=== PATIENT | male | born 1955 | race Caucasian/White ===

== ENCOUNTER 2016-10-17 10:48 | Outpatient (CLI) | payer OTHER ==
[~2016-10-17] VITALS: Ht 177.8 cm; Wt 127.3 kg
--- NOTE | ~2016-10-17 | HEMODYNAMI ---
PATIENT:SHOBHA DICKSON MEDICAL RECORD: [id number] : 51 LOCATION:[facility] ADMISSION DATE: 10/17/16 Generatedon:10/17/201613:27 Patient name: SHOBHA DICKSON Patient #: [id number] SSN: : Date of study: 10/17/2016 Page: Of Hemodynamic Procedure Report Patient Data Patient Demographics Procedure consent was obtained First Name: SHOBHA Gender: Male Last Name: YESSI : 1955 Patient #: [id number] Age: 61 year(s) Race: Unknown Additional ID: [id number] Contact details [address]: [address] [place] [address] State: [place] City: [place] Zip code: [address] Admission Admission Data Admission Date: 10/17/2016 Admission Time: 10:48 Procedure Procedure Types Cath Procedure Diagnostic Procedure LHC LHC w/Coronaries Miscellaneous Procedures Moderate Sedation up to 15 minutes Procedure Description Procedure Date Procedure Date: 10/17/2016 Procedure Start Time: 13:10 Procedure End Time: 13:25 Procedure Staff Name Function Inderjit Sapp MD Performing Physician James Moraes RT Scrub Celia Falk RN Nurse Davi Salcedo RT Monitor Procedure Data Cath Procedure Fluoroscopy Diagnostic fluoroscopy Total fluoroscopy Time: 3.2 time: 3.2 min min Diagnostic fluoroscopy Total fluoroscopy dose: 831 dose: 831 mGy mGy Contrast Material Contrast Material Type Amount (ml) Isovue 300 72 Entry Location Entry Primary Successful Side Size Upsize Upsize Entry Closure Poole ccessful Closure Location (Fr) 1 (Fr) 2 (Fr) Remarks Device Remarks Radial Right 6 Fr Mechanical artery Short Compression Estimated blood loss: 10 ml Diagnostic catheters Device Type Used For End Catheter Placement Terumo 5Fr Kyle 110cm Procedure catheter Terumo 5Fr Dunbar 110cm Procedure catheter Procedure Complications No complications Procedure Medications Medication Administration Route Dosage Oxygen NC 2 l/min Heparin Flush Bag added to field 2 bags (1000units/500ml NS) Lidocaine 2% added to field 20 Radial Cocktail added to field 1 syringe (Verapomil 2mg/Nitro 400mcg/Heparin 1500units) Fentanyl I.V. 50 mcg Versed I.V. 1 mg Fentanyl I.V. 50 mcg Versed I.V. 1 mg Fentanyl I.V. 50 mcg Versed I.V. 1 mg Radial Cocktail I.A. 1 syringe (Verapomil 2mg/Nitro 400mcg/Heparin 1500units) Hemodynamics Rest Heart Rate: 66 (bpm) Pressure Samples Time Site Value (mmHg) Purpose Heart Use Rate(bpm) 13:12 LV 131/-8,9 Snapshot 73 13:12 AO 104/60(81) Pullback 72 13:12 LV 126/-2,16 Pullback 72 Gradients Valve Time Site 1 Site 2 Mean SEP/DFP Peak To Heart Use (mmHg) (sec/min) Peak Rate (mmHg) (bpm) Aortic 13:12 LV AO 16 7 22 72 126/-2,16 104/60(81) Calculations Valve P-P Mean Valve Index Valve Source Name Gradient Area Flow (cm2) Aortic 22 16 22 16 Snapshots Pre Cath Intra NCS Post Cath Vital Signs Time Heart Resp SPO2 etCO2 FN8pgpt NIBP Rhythm Pain Sedation Rate (ipm) (%) (mmHg) (mmHg) (mmHg) Status Level (bpm) 12:52:00 69 16 98 0 0 92/47(69) NSR 0 (11) 10(A) , No pain 12:56:12 64 16 98 0 0 96/36(81) NSR 0 (11) 10(A) , No pain 13:00:24 64 14 97 0 0 95/48(71) NSR 0 (11) 10(A) , No pain 13:04:36 70 18 98 0 0 99/47(84) NSR 0 (11) 10(A) , No pain 13:08:46 68 17 95 0 0 105/53(88) NSR 0 (11) 9(A) , No pain 13:12:56 70 18 95 0 0 87/53(68) NSR 0 (11) 9(A) , No pain 13:17:03 67 17 96 0 0 105/56(82) NSR 0 (11) 9(A) , No pain 13:21:15 68 18 96 0 0 95/49(82) NSR 0 (11) 10(A) , No pain 13:25:23 69 8 98 0 0 104/59(79) NSR 0 (11) 10(A) , No pain Medications Time Medication Route Dose Verified Delivered Reason Notes Effectiveness by by 12:50:55 Oxygen NC 2 l/min Inderjit Celia Per Sekou Falk RN physician 12:51:03 Heparin Flush added 2 bags Inderjit Inderjit used for Bag to Sekou Sapp MD procedure (1000units/500ml field NS) 12:51:10 Lidocaine 2% added 20ml Inderjit Inderjit used for to vial Sekou Sapp MD procedure field 12:51:17 Radial Cocktail added 1 Inderjit Inderjit used for (Verapomil to syringe Sekou Sapp MD procedure 2mg/Nitro field 400mcg/Heparin 1500units) 13:02:42 Fentanyl I.V. 50 mcg Inderjit Celia for sedation Sekou Falk RN 13:02:49 Versed I.V. 1 mg Inderjit Celia for sedation Sekou Falk RN 13:04:27 Fentanyl I.V. 50 mcg Inderjit Celia for sedation Sekou Falk RN 13:04:33 Versed I.V. 1 mg Inderjit Celia for sedation Sekou Falk RN 13:06:45 Fentanyl I.V. 50 mcg Inderjit Celia for sedation Sekou Falk RN 13:06:49 Versed I.V. 1 mg Inderjit Celia for sedation Sekou Falk RN 13:10:38 Radial Cocktail I.A. 1 Inderjit Inderjit for (Verapomil syringe Sekou Sapp MD vasodilation 2mg/Nitro 400mcg/Heparin 1500units) Procedure Log Time Note 12:30:05 James Moraes RT(R) sent for patient. Start room use. 12:31:01 ACC Patient presents with Stable Angina CCS Anginal Class 2--Slight limitation of ordinary activity. 12:31:03 Diagnostic Cath status Elective 12:31:21 Time tracking: Regular hours 12:31:26 Plan of Care:Hemodynamics will remain stable., Cardiac rhythm will remain stable., Comfort level will be maintained., Respiratory function will remain adequate., Patient/ family verbilizes understanding of procedure., Procedure tolerated without complication., Recovers from procedure without complications.. 12:45:22 Patient received from Pre/Post Procedure Room to CCL 1 Alert and oriented. Tansferred to table in Supine position. 12:45:24 Warm blankets applied, and eric hugger turned on for patient comfort. 12:45:24 Correct patient and procedure confirmed by team. 12:45:26 Signed procedure consent form obtained from patient. 12:45:27 ECG and BP/O2 sat monitors applied to patient. 12:50:45 Vital chart was started 12:50:55 Oxygen 2 l/min NC was administered by Celia Falk RN; Per physician; 12:51:03 Heparin Flush Bag (1000units/500ml NS) 2 bags added to field was administered by Inderjit Sapp MD; used for procedure; 12:51:10 Lidocaine 2% 20ml vial added to field was administered by Inderjit Spap MD; used for procedure; 12:51:17 Radial Cocktail (Verapomil 2mg/Nitro 400mcg/Heparin 1500units) 1 syringe added to field was administered by Inderjit Sapp MD; used for procedure; 13:00:03 Baseline sample Acquired. 13:00:07 Rhythm: sinus rhythm 13:00:15 Full Disclosure recording started 13:00:27 H&P Date Dictated: 10/03/2016 Within 30 days and on chart., H&P Addendum completed by physician on day of procedure. (MUST COMPLETE FOR ALL OUTPATIENTS). 13:00:28 Pre-procedure instructions explained to patient. 13:00:29 Pre-op teaching completed and patient verbalized understanding. 13:00:38 Family in waiting room. 13:00:40 Patient NPO since Midnight. 13:00:43 Is the patient allergic to Iodine/contrast media? No. 13:01:00 Is patient on blood thinner?No 13:01:02 Patient diabetic? Yes. 13:01:03 If diabetic: On Metformin? Yes 13:01:08 If on Metformin: Last Dose? 10/15/2016 13:01:11 Previous problem with sedation/anesthesia? No ? 13:01:12 Snore? Yes 13:01:17 Sleep apnea? Yes 13:01:19 Deviated septum? No 13:01:20 Opens mouth fully? Yes 13:01:21 Sticks out tongue? Yes 13:01:25 Airway obstruction? Yes Asthma 13:01:34 Dentures? No ? 13:01:36 Pre procedure: right dorsailis pedis pulse 1+ Palpable, but thready & weak; easily obliterated 13:01:38 Modified Gallito's test Ulnar < 7 seconds 13:01:39 Patient pain scale 0/10 ?. 13:01:47 IV patent on arrival in left forearm with 0.9% NaCl at O. 13:01:50 Lab results completed and on chart. 13:01:54 Right Radial & Right Groin area was prepped with chlora-prep and draped in sterile fashion 13:01:56 Alarms reviewed by R. N. 13:01:57 Sharps counted by scrub and verified by R.N. 13:02:06 --------ALL STOP TIME OUT------ 13:02:07 Final Timeout: patient, procedure, and site verified with staff and physician. All members of the team are in agreement. 13:02:11 Right Radial & Right Groin site verified by team. 13:02:14 Physical assessment completed. ASA score P 2 - A patient with mild systemic disease as per Inderjit Sapp MD. 13:02:18 Sedation plan: IV Moderate Sedation Versed, Fentanyl 13:02:42 Fentanyl 50 mcg I.V. was administered by Celia Falk RN; for sedation; 13:02:49 Versed 1 mg I.V. was administered by Celia Falk RN; for sedation; 13:04:27 Fentanyl 50 mcg I.V. was administered by Celia Falk RN; for sedation; 13:04:33 Versed 1 mg I.V. was administered by Celia Falk RN; for sedation; 13:06:45 Fentanyl 50 mcg I.V. was administered by Celia Falk RN; for sedation; 13:06:49 Versed 1 mg I.V. was administered by Celia Falk RN; for sedation; 13:09:27 Use device set Radial Dx 13:09:29 Tegaderm 4 x 4 opened to sterile field. 13:09:30 Acist Manifold opened to sterile field. 13:09:30 Acist Hand Control opened to sterile field. 13:09:32 Acist Syringe opened to sterile field. 13:09:32 Medline Cath Pack opened to sterile field. 13:09:33 Bag Decanter opened to sterile field. 13:09:33 Terumo 6Fr Slender Glidesheath opened to sterile field. 13:09:33 St Javi 260cm J .035 wire opened to sterile field. 13:09:34 Cook 21G 4cm Radial Needle opened to sterile field. 13:09:34 MBrace Wrist Support opened to sterile field. 13:10:23 Procedure started. 13:10:31 Local anesthetic to right radial artery with Lidocaine 2% by Inderjit Sapp MD.INITIAL ACCESS ONLY 13:10:38 Radial Cocktail (Verapomil 2mg/Nitro 400mcg/Heparin 1500units) 1 syringe I.A. was administered by Inderjit Sapp MD; for vasodilation; 13:10:50 A 6 Fr Short sheath was inserted into the Right Radial artery 13:11:28 A Terumo 5Fr Kyle 110cm catheter was advanced over the wire and used for Procedure. 13:12:20 LV angiography performed. 13:12:32 LV gram done using PAEZ 13:12:42 EF : 55 % 13:12:43 LV hemodynamics recorded. 13:12:51 Injector settings: Ml/sec: 5, Volume: 15, 13:14:39 RCA angiography performed. 13:14:58 Catheter exchanged over wire. 13:15:54 A Terumo 5Fr Dunbar 110cm catheter was advanced over the wire and used for Procedure. 13:16:57 LCA angiography performed. 13:20:23 Catheter removed. 13:20:30 Terumo TR Band Standard opened to sterile field. 13:20:47 Sheath removed intact; hemostasis achieved with Mechanical Compression to the Right Radial artery. 13:20:50 Procedure ended.(Physican Out) 13:21:04 Fluoroscopy time 03.20 minutes. 13:21:09 Fluoroscopy dose: 831 mGy 13:21:09 Flurop Dose total: 831 13:21:12 Contrast amount:Isovue 300 72ml. 13:21:16 Sharps counted by scrub and verified by R.N. 13:21:18 TR band inflated with 10cc of air. 13:21:21 Insertion/operative site no bleeding no hematoma. 13:21:28 Post Procedure Pulses reassessed and unchanged 13:21:31 Post-procedure physical assessment completed. ASA score P 2 - A patient with mild systemic disease as per Inderjit Sapp MD. 13:21:33 Post procedure rhythm: unchanged. 13:21:37 Estimated blood loss: 10 ml 13:21:38 Post procedure instruction explained to patient.Patient verbalizes understanding. 13:21:38 Patient needs reinforcement of post procedure teaching. 13:21:49 Procedure type changed to Cath procedure, Diagnostic procedure, LHC, LHC w/Coronaries, Miscellaneous Procedures, Moderate Sedation up to 15 minutes 13:21:54 Procedure Complication : No complications 13:23:47 Procedure and supply charges have been captured, reviewed, submitted and are correct. 13:25:20 Vital chart was stopped 13:25:21 See physician's report for complete and final results. 13:25:27 Report given to Pre/Post Procedure Room. 13:25:31 Patient transfered to Pre/Post Procedure Room with Stretcher. 13:25:35 Procedure ended. 13:25:35 Full Disclosure recording stopped 13:25:38 End room use (Document Last) Device Usage Item Name Manufacture Quantity Catalog Hospital Part Current Minimal Lot# / Number Charge Number Stock Stock Serial# Code Tegaderm 4 3M 1 [id number] [id number] 435769 5 x 4 Acist Acist 1 11834 445366 089791 685478 5 Manifold [employer] Inc Acist Hand Acist 1 82120 349956 432204 356766 5 Control [employer] Inc Acist Acist 1 26864 280553 505064 612249 20 Syringe Medical [employer] Inc Medline Cardinal 1 [id number] 375361 11966 384163 5 Cath Pack Health Bag Microtek 1 2001S 781576 02433 565388 5 Dec[employer] Terumo 6Fr Terumo 1 [id number] 710485 043861 077066 [address] St Javi 1 455774 485097 209634 346971 30 260cm J .035 wire MBrace Advanced 1 [id number] 871859 56303 467457 5 Wrist Vascular Support Dynamics Terumo 5Fr Terumo 1 40-6533 771722 964856 739044 5 Kyle 110cm catheter Terumo 5Fr Terumo 1 405853 065612 507046 806482 5 Dunbar 110cm catheter Terumo TR Terumo 1 [id number] 634919 601566 095860 40 Band Standard Cook 21G [place] [address] [id number] 897669 304657 508023 5 4cm Radial Needle Signature Audit Grethel Stage Time Signature Unsigned Intra-Procedure 10/17/2016 Davi Salcedo 1:27:16 PM RT(R) Signatures Monitor : Davi Salcedo RT Signature : Date : Time : [place] [id number] [facility] [place] [address]
[2016-10-17] MEDS ORDERED: NEURONTIN600 MG PO (11:18)
[2016-10-17] MEDS ORDERED: GLUCOPHAGE500 MG PO (11:19)
[2016-10-17] MEDS ORDERED: COZAAR100 MG PO (11:20)
[2016-10-17] MEDS ORDERED: SINGULAIR10 MG PO (11:20)
[2016-10-17] MEDS ORDERED: ADVAIR 500/501 DISK INH (11:21)
[2016-10-17] MEDS ORDERED: AMBIEN10 MG PO (11:21)
[2016-10-17] MEDS ORDERED: ALBUTEROL1.25 MG/3 INH (11:22)
[2016-10-17] MEDS ORDERED: CYCLOBENZAPRINE10 MG PO (11:22)
[2016-10-17] MEDS ORDERED: GLUCOTROL XL 1010 MG PO (11:23)
[2016-10-17] MEDS ORDERED: NEXIUM40 MG PO (11:24)
[2016-10-17] MEDS ORDERED: HYDROCODONE-APA1 TAB PO (11:24)
[2016-10-17] MEDS ORDERED: NAPROSYN500 MG PO (11:24)
[2016-10-17] MEDS ORDERED: VITAMIN B-1000 MCG/M SQ (11:25)
[2016-10-17] MEDS ORDERED: NORVASC5 MG PO (11:25)
[2016-10-17] MEDS ORDERED: GLUCOPHAGE1000 MG (11:26)
[2016-10-17 11:34] VITALS: BP 145/79; Ht 177.8 cm; Wt 127.3 kg
[2016-10-17 11:52] LABS: BASOPHILS 0.5 % (0-2); EOSINOPHILS 4.9 % (0-7); HEMOGLOBIN 12.1 g/dL (13.5-17.5); IMMATURE GRANULOCYTES 0.6 % (0-5); LYMPHOCYTES 17.9 % (15-50); MCH 29.9 pg (26.0-34.0); MCHC 31.8 g/dL (31.0-37.0); MCV 93.8 fL (80.0-100.0); MEAN PLATELET VOLUME 9.2 fL (7.4-10.4); MONOCYTES 9.2 % (2-11); NEUTROPHILS 66.9 % (40-80); PLATELET COUNT 239 10x3/uL (130-400); RBC 4.05 10x6/uL (4.20-6.10); RDW 16.6 % (11.5-14.5); WBC 6.5 10x3/uL (4.8-10.8)
[2016-10-17 12:08] LABS: ANION GAP 12.7 mmol/L (8-16); CALCIUM 9.4 mg/dL (8.5-10.1); CARBON DIOXIDE 27.7 mmol/L (21.0-32.0); CREATININE - SERUM 1.3 mg/dL (0.6-1.3); POTASSIUM - SERUM 4.4 mmol/L (3.5-5.1)
--- NOTE | 2016-10-17 13:58 | NUR ---
TR BAND TO R/WRIST CDI NO BLEEDING NO HEMATOMA NOTED INSTRUCTED PATIENT TO KEEP RUE STRAIGHT NO BENDING OR FLEXING OF WRIST. VSS
--- NOTE | 2016-10-19 10:59 | OP ---
PATIENT NAME: SHOBHA DICKSON MEDICAL RECORD: [id number] :51 LOCATION:D.[facility] ADMISSION DATE: SURGEON: ANA ROSA WALSH M.D. DATE OF OPERATION: 10/17/2016 REFERRING PHYSICIAN: London Valentin at [place], [place]. PROCEDURES PERFORMED: 1. Selective coronary angiography. 2. Left heart catheterization with ventriculogram. INDICATION: A 61-year-old gentleman presents with symptoms of dyspnea, angina, and abnormal stress test. EQUIPMENT USED: A 5-Barbadian Kyle catheter, Cocolalla catheter. TECHNIQUE: A 6-Barbadian sheath was inserted in retrograde fashion in the right radial artery. Next, selective coronary angiography was performed in standard views using 5-Barbadian Kyle catheter. The left main is cannulated with the Cocolalla catheter. Left heart catheterization was performed using the Kyle catheter. CORONARY ANATOMY: 1. Left main: Left main trunk is large in caliber. It gives rise to the LAD and circumflex. It is angiographically normal. 2. LAD: This is a large-caliber vessel extending to the apex. The proximal vessel appears to be about 5 mm in diameter. This is a smooth-walled vessel and angiographically normal. 3. Circumflex: This vessel is large in caliber. It supplies the lateral branch proximal segment. The circumflex and lateral branch are angiographically normal. 4. Right coronary: This vessel is quite large and dominant. It supplies the PDA and posterolateral branch in distal segment. This vessel is angiographically normal. 5. Left ventricle: Left ventricle is normal in size and function. No wall motion abnormalities are noted. Estimated ejection fraction is 60%. IMPRESSION: 1. Normal coronary arteries. 2. Normal left ventricular function. RECOMMENDATIONS: I suspect the Cardiolite stress was a false positive. We will continue with medical management. TRANSINT:[id number] Voice Confirmation ID: [id number] DOCUMENT ID: [id number] ANA ROSA WALSH M.D. at 1059 CC: [id number] DICTATION DATE: 10/17/16 1327 ACADEMIC DEPARTMENT CHAIR: 10/17/16 1352 DEP CLI 10/17/16 [place] [address]
== END 2016-10-17 16:00 | disposition home or self-care (01) ==
LOC: D.CATH 10:48
PROVIDERS: Internal Medicine Cardiovascular Disease
DX: R94.39 Abnormal result of other cardiovascular function study (principal); R06.00 Dyspnea, unspecified

== ENCOUNTER 2016-10-26 06:55 | Day surgery (SDC) | payer OTHER ==
[~2016-10-26] VITALS: Ht 177.8 cm; Wt 124.7 kg
[~2016-10-26 06:55] MED LIST: ADVAIR 500/501 DISK INH; ALBUTEROL1.25 MG/3 INH; AMBIEN10 MG PO; COZAAR100 MG PO; CYCLOBENZAPRINE10 MG PO; GLUCOPHAGE1000 MG; GLUCOPHAGE500 MG PO; GLUCOTROL XL 1010 MG PO; HYDROCODONE-APA1 TAB PO; NAPROSYN500 MG PO; NEURONTIN600 MG PO; NEXIUM40 MG PO; NORVASC5 MG PO; PERCOCET 10/3251 TA1 PO; SINGULAIR10 MG PO; VITAMIN B-1000 MCG/M SQ
[2016-10-26 07:38] VITALS: BP 128/69; Ht 177.8 cm; Wt 124.7 kg
[2016-10-26 08:34] LABS: HEMATOCRIT 36.9 % (42.0-54.0); HEMOGLOBIN 11.6 g/dL (13.5-17.5); MCH 29.5 pg (26.0-34.0); MCHC 31.4 g/dL (31.0-37.0); MCV 93.9 fL (80.0-100.0); MEAN PLATELET VOLUME 9.4 fL (7.4-10.4); RBC 3.93 10x6/uL (4.20-6.10); RDW 16.5 % (11.5-14.5); WBC 5.8 10x3/uL (4.8-10.8)
[2016-10-26 09:01] LABS: ANION GAP 11.4 mmol/L (8-16); CALCIUM 9.8 mg/dL (8.5-10.1); CREATININE - SERUM 1.3 mg/dL (0.6-1.3); POTASSIUM - SERUM 4.4 mmol/L (3.5-5.1)
[2016-10-26] MEDS ORDERED: DILAUDID4 MG PO (10:44)
--- NOTE | 2016-10-30 18:11 | OP ---
PATIENT NAME: SHOBHA DICKSON MEDICAL RECORD: [id number] :51 LOCATION:[facility] ADMISSION DATE: SURGEON: SHOBHA BOBBY MD DATE OF OPERATION: 10/26/2016 PREOPERATIVE DIAGNOSIS: Recurrent acromioclavicular arthritis with recurrent impingement of the left shoulder. POSTOPERATIVE DIAGNOSES: Recurrent acromioclavicular arthritis with recurrent impingement of the left shoulder. Severe biceps tendinitis with near full thickness tearing. PROCEDURES: 1. Arthroscopic biceps tenotomy. 2. Arthroscopic distal clavicle excision done through separate incision-1 cm. 3. Arthroscopic subacromial decompression. SURGEON: Shobha Bobby MD. ANESTHESIA: General. INTRAOPERATIVE COMPLICATIONS: None. SUMMARY OF PATHOLOGIC FINDINGS: Consistent with the preoperative imaging studies. The patient had recurrence of his distal clavicle osteophytes. Furthermore, the patient had recurrence of his inferior spurring and the biceps tendon was in very poor condition. OPERATIVE SUMMARY IN DETAIL: After obtaining the appropriate preoperative orthopedic surgery consent as well as anesthetic consultation, evaluation and clearance, the patient was brought to the operating room and placed on the operating table in supine position. After general laryngeal mask was administered, the patient was placed in a right lateral decubitus position. All pressure points were well padded to include down leg peroneal pad as well as axillary roll. The patient was held firmly to the operating table using the vacuum pack suction system. Left upper extremity and shoulder were then prepped and draped in routine sterile fashion. The arm was held in the Arthrex traction boom at 30 degrees of forward flexion, 30 degrees of abduction with 10 pounds of traction laterally. Arthroscopy was established in the glenohumeral joint from a posterior portal. Anterior portal was established in the anterior safe interval. Diagnostic arthroscopy revealed the above findings. The [place] tissue ablation system was utilized to release the biceps tendon. Having completed this, attention turned to the subacromial space. While on subacromial space, recurrent impingement was noted. The [place]wood tissue ablation system was utilized to denude the undersurface of the acromion of all soft tissue elements. A 5-0 barrel bur was used to perform acromioplasty at the level of the acromioclavicular joint, then through a separate anterior arthroscopic portal under arthroscopic visualization, distal clavicle was excised and on the posterior inferior to superior freed entirely on one incision. Although rotator cuff was inflamed, bursa was taken down. There was no rotator cuff tearing was seen. Having completed this, arthroscopy portals were closed in routine interrupted fashion using 4-0 Prolene. Sterile dressings were applied. The patient was awakened, taken to recovery in stable condition. All final needle and sponge counts were correct. OPERATIVE REPORT [id number] SHOBHA DICKSON TRANSINT:[id number] Voice Confirmation ID: [id number] DOCUMENT ID: [id number] DIAMANTE YBRNE, SHOBHA BOURGEOIS at 1811 CC: [id number] DICTATION DATE: 10/27/16 1437 ROLLWAY WORKER: 10/28/16 0059 [facility] 10/26/16 [place] [id number] [place] [address]
== END 2016-10-26 13:00 | disposition home or self-care (01) ==
LOC: D.OPS 06:55 → D.PAN 09:15 → D.OPS 10:45 → D.PAN 10:45 → D.OPS 13:00
PROVIDERS: Anesthesiology
DX: M13.819 Other specified arthritis, unspecified shoulder (principal); M75.42 Impingement syndrome of left shoulder; M25.512 Pain in left shoulder; J45.909 Unspecified asthma, uncomplicated; I10 Essential (primary) hypertension; E11.9 Type 2 diabetes mellitus without complications; G47.30 Sleep apnea, unspecified; K21.9 Gastro-esophageal reflux disease without esophagitis; Z01.812 Encounter for preprocedural laboratory examination

== ENCOUNTER 2017-10-01 11:07 | Outpatient (CLI) | payer OTHER ==
[~2017-10-01] VITALS: Ht 177.8 cm; Wt 116.4 kg
--- NOTE | ~2017-10-01 | HEMODYNAMI ---
PATIENT:SHOBHA DICKSON MEDICAL RECORD: [id number] : 51 LOCATION:[facility] ADMISSION DATE: 10/01/17 Generatedon:10/01/201713:27 Patient name: SHOBHA DICKSON Patient #: [id number] SSN: : Date of study: 10/01/2017 Page: Of Hemodynamic Procedure Report Patient Data Patient Demographics Procedure consent was obtained First Name: SHOBHA Gender: Male Last Name: YESSI : 1955 Middle Initial: M Age: 62 year(s) Patient #: [id number] Race: Unknown Additional ID: [id number] Contact details [address]: [address] [place] [address] State: [place] City: [place] Zip code: [address] Admission Admission Data Admission Date: 10/01/2017 Admission Time: 11:07 Lab Results Lab Result Date: 10/01/2017 Lab Result Time: 0:00 Biochemistry Name Units Result Min Max BUN mg/dl 17 --(---*)-- 7 18 Creatinine mg/dl 1.4 --(----)*- 0.6 1.3 CBC Name Units Result Min Max Hemoglobin g/dl 12.5 *-(----)-- 13.5 17.5 Procedure Procedure Types Cath Procedure Diagnostic Procedure Sedation Charges Moderate Sedation up to 15 minutes Peripheral Cath Diagnostic Procedure Cath Peripheral Xfdxu-Kbftbla-Esk-Off Procedure Description Procedure Date Procedure Date: 10/01/2017 Procedure Start Time: 13:15 Procedure End Time: 13:24 Procedure Staff Name Function Inderjit Sapp MD Performing Physician Ellie Richards RT Monitor Jo Ann Cook RT Scrub Janet Bridges RN Nurse Procedure Data Cath Procedure Fluoroscopy Diagnostic fluoroscopy Total fluoroscopy Time: 1.1 time: 1.1 min min Diagnostic fluoroscopy Total fluoroscopy dose: 271 dose: 271 mGy mGy Contrast Material Contrast Material Type Amount (ml) Isovue 300 77 Entry Location Entry Primary Successful Side Size Upsize Upsize Entry Closure Succes sful Closure Location (Fr) 1 (Fr) 2 (Fr) Remarks Device Remarks Femoral Right 5 Fr Exoseal artery Estimated blood loss: 5 ml Diagnostic catheters Device Type Used For End Catheter Placement DIAGNOSTIC UF 5Fr Multi-vessel catheter ([id number]) Angiography Procedure Complications No complications Procedure Medications Medication Administration Route Dosage Oxygen NC 2 l/min Lidocaine 2% added to field 20 Heparin Flush Bag added to field 2 bags (1000units/500ml NS) 0.9% NaCl I.V. 100 ml/hr Versed I.V. 1 mg Fentanyl I.V. 100 mcg Versed I.V. 1 mg Fentanyl I.V. 50 mcg Versed I.V. 1 mg Fentanyl I.V. 50 mcg Hemodynamics Rest HGB: 12.5 (g/dl) Heart Rate: 87 (bpm) Snapshots Pre Cath Intra NCS Post Cath Vital Signs Time Heart Resp SPO2 etCO2 NIBP Rhythm Pain Sedation Rate (ipm) (%) (mmHg) (mmHg) Status Level (bpm) 13:00:47 85 15 96 33.9 120/76(87) NSR 0 (11) 10(A) , No pain 13:04:59 86 19 95 21.1 115/72(91) NSR 0 (11) 10(A) , No pain 13:09:11 83 17 96 42.2 110/69(88) NSR 0 (11) 10(A) , No pain 13:13:21 82 17 94 40 109/67(85) NSR 0 (11) 9(A) , No pain 13:17:31 83 18 95 41.4 118/69(93) NSR 0 (11) 9(A) , No pain 13:21:45 87 16 96 45.2 109/61(81) NSR 0 (11) 10(A) , No pain 13:25:57 86 17 97 43.7 110/65(83) NSR 0 (11) 10(A) , No pain Medications Time Medication Route Dose Verified Delivered Reason Notes Effe ctiveness by by 13:01:57 Oxygen NC 2 Inderjit Buffie used for l/min Sekou Bridges RN procedure 13:02:11 Lidocaine 2% added 20ml Inderjit Inderjit for local to vial Sekou Sapp MD anesthetic field 13:02:17 Heparin Flush added 2 Inderjit Inderjit used for Bag to bags Sekou Sapp MD procedure (1000units/500ml field NS) 13:02:26 0.9% NaCl I.V. 100 Inderjit Buffie Per ml/hr Sekou Bridges RN physician 13:02:41 Versed I.V. 1 mg Inderjit Buffie for Sekou Bridges RN sedation 13:02:47 Fentanyl I.V. 100 Inderjit Buffie for mcg Sekou Bridges RN sedation 13:06:43 Versed I.V. 1 mg Inderjit Buffie for Sekou Bridges RN sedation 13:06:46 Fentanyl I.V. 50 Inderjit Buffie for mcg Sekou Bridges RN sedation 13:13:07 Versed I.V. 1 mg Inderjit Buffie for Sekou Bridges RN sedation 13:13:10 Fentanyl I.V. 50 Inderjit Buffie for mcg Sekou Bridges RN sedation Procedure Log Time Note 12:40:00 Ellie Richards RT(R) sent for patient. Start room use. 12:40:01 Time tracking: Regular hours (M-F 7:00 - 5:00) 12:40:07 Plan of Care:Hemodynamics will remain stable., Cardiac rhythm will remain stable., Comfort level will be maintained., Respiratory function will remain adequate., Patient/ family verbilizes understanding of procedure., Procedure tolerated without complication., Recovers from procedure without complications.. 12:44:02 Lab Result : BUN 17 mg/dl 12:44:02 Lab Result : Hemoglobin 12.5 g/dl 12:44:02 Lab Result : Creatinine 1.4 mg/dl 12:47:14 Patient received from Pre/Post Procedure Room to CCL 2 Alert and oriented. Tansferred to table in Supine position. 12:47:15 Warm blankets applied, and eric hugger turned on for patient comfort. 12:47:15 Correct patient and procedure confirmed by team. 12:47:17 Signed procedure consent form obtained from patient. 12:47:18 ECG and BP/O2 sat monitors applied to patient. 12:59:42 Baseline sample Acquired. 12:59:42 Vital chart was started 12:59:46 Rhythm: sinus rhythm 12:59:48 Full Disclosure recording started 12:59:51 H&P Date Dictated: 10/01/2017 Within 30 days and on chart., H&P Addendum completed by physician on day of procedure. (MUST COMPLETE FOR ALL OUTPATIENTS). 12:59:52 Pre-procedure instructions explained to patient. 12:59:53 Pre-op teaching completed and patient verbalized understanding. 12:59:54 Family in waiting room. 12:59:56 Patient NPO since Midnight. 12:59:57 Is the patient allergic to Iodine/contrast media? No. 12:59:58 Was the patient premedicated? No 12:59:59 Is patient on blood thinner?Yes 13:00:04 If diabetic: On Metformin? Yes 13:00:09 If on Metformin: Last Dose? 09/29/2017 13:00:13 Previous problem with sedation/anesthesia? No ? 13:00:15 Snore? Yes 13:00:16 Sleep apnea? Yes 13:00:16 Deviated septum? No 13:00:18 Opens mouth fully? Yes 13:00:18 Sticks out tongue? Yes 13:01:08 Airway obstruction? Yes asthma 13:01:10 Dentures? No ? 13:01:14 Pre procedure: right dorsailis pedis pulse 1+ Palpable, but thready & weak; easily obliterated 13:01:16 Pre procedure: left dorsailis pedis pulse 1+ Palpable, but thready & weak; easily obliterated 13:01:18 Patient pain scale 0/10 ?. 13:01:36 IV patent on arrival in left forearm with 0.9% NaCl at [facility]. 13:01:38 Lab results completed and on chart. 13:01:42 Bilateral groins area was prepped with chlora-prep and draped in sterile fashion 13:01:42 Alarms reviewed by R. N. 13:01:43 Sharps counted by scrub and verified by R.N. 13:01:45 Physician arrived 13:01:46 --------ALL STOP TIME OUT------ 13:01:46 Final Timeout: patient, procedure, and site verified with staff and physician. All members of the team are in agreement. 13:01:48 Bilateral groins site verified by team. 13:01:50 Physical assessment completed. ASA score P 2 - A patient with mild systemic disease as per Inderjit Sapp MD. 13:01:53 Sedation plan: IV Moderate Sedation Medication:Versed, Fentanyl 13:01:57 Oxygen 2 l/min NC was administered by Janet Bridges RN; used for procedure; 13:02:11 Lidocaine 2% 20ml vial added to field was administered by Inderjit Sapp MD; for local anesthetic; 13:02:17 Heparin Flush Bag (1000units/500ml NS) 2 bags added to field was administered by Inderjit Sapp MD; used for procedure; 13:02:26 0.9% NaCl 100 ml/hr I.V. was administered by Janet Bridges RN; Per physician; 13:02:41 Versed 1 mg I.V. was administered by Janet Bridges RN; for sedation; 13:02:47 Fentanyl 100 mcg I.V. was administered by Janet Bridges RN; for sedation; 13:06:43 Versed 1 mg I.V. was administered by Janet Bridges RN; for sedation; 13:06:46 Fentanyl 50 mcg I.V. was administered by Janet Bridges RN; for sedation; 13:09:38 Zero performed for pressure channel P1 13:12:46 Baseline sample Acquired. 13:13:07 Versed 1 mg I.V. was administered by Janet Bridges RN; for sedation; 13:13:10 Fentanyl 50 mcg I.V. was administered by Janet Bridges RN; for sedation; 13:15:07 Use device set Radial Dx or PCI 13:15:08 ACIST Syringe (65546) opened to sterile field. 13:15:09 Medline Cath Pack ([id number]) opened to sterile field. 13:15:10 Bag Decanter () opened to sterile field. 13:15:11 DIAGNOSTIC WIRE .035 260cm J wire (135568) opened to sterile field. 13:15:12 ACIST Hand Control (24849) opened to sterile field. 13:15:12 ACIST Manifold (99577) opened to sterile field. 13:15:13 Tegaderm 4 x 4 (1626W) opened to sterile field. 13:15:21 SHEATH 5Fr Prelude ([id number]) opened to sterile field. 13:15:41 Procedure started. 13:15:45 Local anesthetic to right femoral artery with Lidocaine 2% by Inderjit Sapp MD.INITIAL ACCESS ONLY 13:17:12 A 5 Fr sheath was inserted into the Right Femoral artery 13:17:24 A DIAGNOSTIC UF 5Fr catheter ([id number]) was advanced over the wire and used for Multi-vessel Angiography. 13:20:05 Abdominal angiogram w/ runoff was performed. 13::54 EXOSEAL 5Fr (EX500) opened to sterile field. 13:22:01 Catheter removed. 13:22:17 Sheath removed intact; hemostasis achieved with Exoseal to the Right Femoral artery. 13:22:20 Procedure ended.(Physican Out) 13:22:45 Fluoroscopy time 01.10 minutes. 13::49 Fluoroscopy dose: 271 mGy 13::49 Flurop Dose total: 271 13::54 Contrast amount:Isovue 300 77ml. 13:22:55 Sharps counted by scrub and verified by R.N. 13::57 Insertion/operative site no bleeding no hematoma. 13:23:00 Post-op/insertion site Right Femoral artery dressed using a 4 x 4 and Tegaderm. 13:23:02 Post right femoral artery:stable 13:23:04 Post Procedure Pulses reassessed and unchanged 13:23:06 Post procedure rhythm: unchanged. 13:23:09 Estimated blood loss: 5 ml 13:23:11 Post procedure instruction explained to patient.Patient verbalizes understanding. 13:23:11 Patient needs reinforcement of post procedure teaching. 13:23:27 Procedure type changed to Cath procedure, Diagnostic procedure, Sedation Charges, Moderate Sedation up to 15 minutes, Peripheral Cath Diagnostic Procedure, Cath Peripheral, Gplwp-Ngcbygs-Uvl-Off 13:23:29 Procedure and supply charges have been captured, reviewed, submitted and are correct. 13:23:33 Procedure Complication : No complications 13:23:57 Vital chart was stopped 13:23:57 See physician's report for complete and final results. 13:24:00 Report given to Pre/Post Procedure Room. 13:24:02 Patient transfered to Pre/Post Procedure Room with Stretcher. 13:24:05 Procedure ended. 13:24:05 Full Disclosure recording stopped 13:24:09 End room use (Document Last) Device Usage Item Name Manufacture Quantity Catalog Hospital Part Current Minimal Lot# / Number Charge Number Stock Stock Serial# Code ACIST Acist 1 14954 767004 213992 160177 20 Telly (87391) [employer] Medline Cath Cardinal 1 [id number] 912987 10186 455897 5 Rec[employer] Inc. ([id number]) Bag Decanter Microtek 1 2001S 273457 35837 123965 5 (2001S) Medical Inc. DIAGNOSTIC St Javi 1 [id number] 829476 089611 369835 30 WIRE .035 260cm J wire (285320) ACIST Hand Acist 1 43247 013494 867939 087696 5 Control Medical (44323) Systems Inc ACIST Acist 1 11405 887896 357075 103606 5 Manifold Medical (98409) Systems Inc Tegaderm 4 x 3M 1 1626W 895853 734970 291078 5 4 (1626W) SHEATH 5Fr Merit 1 [id number] 765309 767239 115285 5 Prelude Medical ([id number]) DIAGNOSTIC Cardinal 1 [id number] 873220 099731 757512 10 UF 5Fr Health catheter ([id number]) EXOSEAL 5Fr Cardinal 1 EX500 250895 014835 378977 10 (EX500) Health Signature Audit [place] Stage Time Signature Unsigned Intra-Procedure 10/01/2017 Ellie Richards 1:26:58 PM RT(R) Signatures Monitor : Ellie Richards RT Signature : Date : Time : [facility] [address] [place] [address]
[~2017-10-01 11:07] MED LIST changes: +DILAUDID4 MG PO
[2017-10-01] MEDS ORDERED: BENZONATATE200 MG PO (11:39)
[2017-10-01] MEDS ORDERED: SINEQUAN25 MG PO (11:40)
[2017-10-01] MEDS ORDERED: PROTONIX40 MG PO (11:40)
[2017-10-01] MEDS ORDERED: ZYRTEC10 MG PO (11:41)
[2017-10-01 11:54] VITALS: BP 154/65; Ht 177.8 cm; Wt 116.4 kg
[2017-10-01 11:58] LABS: BASOPHILS 0.2 % (0-2); EOSINOPHILS 2.2 % (0-7); HEMATOCRIT 39.7 % (42.0-54.0); HEMOGLOBIN 12.5 g/dL (13.5-17.5); IMMATURE GRANULOCYTES 0.1 % (0-5); MCH 28.5 pg (26.0-34.0); MCHC 31.5 g/dL (31.0-37.0); MCV 90.4 fL (80.0-100.0); MONOCYTES 7.2 % (2-11); NEUTROPHILS 72.3 % (40-80); RBC 4.39 10x6/uL (4.20-6.10); RDW 15.6 % (11.5-14.5); WBC 8.9 10x3/uL (4.8-10.8)
[2017-10-01 11:59] LABS: PLATELET COUNT 308 10x3/uL (130-400)
[2017-10-01 12:16] LABS: ANION GAP 15.2 mmol/L (8-16); CALCIUM 9.5 mg/dL (8.5-10.1); CARBON DIOXIDE 25.9 mmol/L (21.0-32.0); CREATININE - SERUM 1.4 mg/dL (0.6-1.3); POTASSIUM - SERUM 4.1 mmol/L (3.5-5.1)
== END 2017-10-01 16:25 | disposition home or self-care (01) ==
LOC: D.CATH 11:07
PROVIDERS: Internal Medicine Cardiovascular Disease
DX: I73.9 Peripheral vascular disease, unspecified (principal); R79.81 Abnormal blood-gas level; M79.605 Pain in left leg; M79.604 Pain in right leg; E11.9 Type 2 diabetes mellitus without complications; I10 Essential (primary) hypertension; Z01.812 Encounter for preprocedural laboratory examination

== ENCOUNTER 2019-08-04 07:28 | Day surgery (SDC) | payer MEDICARE, OTHER ==
[~2019-08-04] VITALS: Ht 162.6 cm; Wt 106.6 kg
[~2019-08-04 07:28] MED LIST changes: +BENZONATATE200 MG PO; -NEURONTIN600 MG PO; +NEURONTIN800 MG PO; +PROTONIX40 MG PO; +SINEQUAN25 MG PO; +ZYRTEC10 MG PO
[2019-08-04 07:56] LABS: HEMATOCRIT 40.1 % (42.0-54.0); MCH 30.1 pg (26.0-34.0); MCHC 32.4 g/dL (31.0-37.0); MCV 92.8 fL (80.0-100.0); MEAN PLATELET VOLUME 8.7 fL (7.4-10.4); RBC 4.32 10x6/uL (4.20-6.10); RDW 15.7 % (11.5-14.5); WBC 9.1 10x3/uL (4.8-10.8)
[2019-08-04 08:07] LABS: CALCIUM 8.8 mg/dL (8.5-10.1); CARBON DIOXIDE 28.8 mmol/L (21.0-32.0); CREATININE - SERUM 1.1 mg/dL (0.6-1.3); POTASSIUM - SERUM 4.8 mmol/L (3.5-5.1)
[2019-08-04] MEDS ORDERED: ADVAIR (08:46)
[2019-08-04 08:52] VITALS: Ht 162.6 cm; Wt 106.6 kg
[2019-08-04] MEDS ORDERED: HYDROCODON-ACE1 EA10 PO (10:18)
--- NOTE | 2019-08-11 09:56 | OP ---
PATIENT NAME: SHOBHA DICKSON MEDICAL RECORD: [id number] :51 LOCATION:.[facility] ADMISSION DATE: SURGEON: SHOBHA BOBBY MD DATE OF OPERATION: 08/04/2019 PREOPERATIVE DIAGNOSES: Impingement syndrome of the left shoulder with rotator cuff tear. POSTOPERATIVE DIAGNOSES: Impingement syndrome of the left shoulder with rotator cuff tear. PROCEDURES: 1. Arthroscopic rotator cuff repair of the left shoulder. 2. Arthroscopic distal clavicle excision of the left shoulder done through separate incision - 1 cm. 3. Arthroscopic subacromial decompression with acromioplasty and bursectomy. SURGEON: Shobha Bobby MD ANESTHESIA: General. INTRAOPERATIVE COMPLICATIONS: None. SUMMARY OF PATHOLOGIC FINDINGS: Consistent with the preoperative physical examination as well as MRI, the patient had a full thickness rotator cuff tear as well as acromioclavicular arthritis, excoriation of the coracoacromial ligament and grade III anatomy of the acromion. OPERATIVE SUMMARY IN DETAIL: After obtaining the appropriate preoperative orthopedic surgery consent as well as anesthetic consultation, evaluation and clearance, the patient was brought to the operating room and placed on the operating table in a supine position. After general laryngeal mask airway was administered, the patient was placed in a right lateral decubitus position. All pressure points were well padded to include down leg peroneal pad as well as axillary roll. The patient was held firmly to the operating table using the vacuum pack suction system. The patient's left upper extremity and shoulder were then prepped and draped in routine sterile fashion. The arm was held in the Arthrex traction boom at 30 degrees of forward flexion, 30 degrees of abduction, and 10 pounds of traction laterally. Arthroscopy was established in the glenohumeral joint from the posterior portal. Anterior portal was established in the anterior safe interval. Diagnostic arthroscopy showed the patient to have a rotator cuff tear. Transrotator cuff portal was created. The rotator cuff was debrided from all nonviable appearing tendinous elements and the articular aspect of the supraspinatus tendinous footprint was decorticated using the resector. Attention was then turned to the subacromial space. While on subacromial space, the [place] tissue ablation system was utilized to denude the undersurface of the acromion of all soft tissue elements and release the coracoacromial ligament. A 5-0 barrel bur was then used to perform acromioplasty at the level of acromioclavicular joint and through a separate anterior arthroscopic portal, distal clavicle was excised for 1 cm and the pannus of osteophytes were taken down from both the acromial and clavicular side. Attention was then turned to the rotator cuff. Under direct visualization, a single #2 FiberWire was placed in an inverted mattress style fashion, anchored laterally with a 5.5 SwiveLock from Arthrex resulting in reapproximation of the rotator cuff back to its anatomic position. Having OPERATIVE REPORT [id number] SHOBHA DICKSON completed this, arthroscopy portals were closed in routine interrupted fashion using 4-0 Prolene. Sterile dressings were applied. The patient was awakened and taken to the recovery room in stable condition. All final needle and sponge counts were correct. TRANSINT:[id number] Voice Confirmation ID: [id number] DOCUMENT ID: [id number] DIAMANTE BYRNE, SHOBHA BOURGEOIS at 0956 CC: [id number] DICTATION DATE: 08/08/19 1050 VASCULAR TECHNICIAN: 08/08/19 1743 [facility] 08/04/19 [facility] [address] [place] [address]
== END 2019-08-04 12:25 | disposition home or self-care (01) ==
LOC: D.OPS 07:28
PROVIDERS: Anesthesiology; ATTEND Orthopaedic Surgery
DX: M75.42 Impingement syndrome of left shoulder (principal); M75.102 Unspecified rotator cuff tear or rupture of left shoulder, not specified as traumatic; M25.562 Pain in left knee; M25.511 Pain in right shoulder; M75.41 Impingement syndrome of right shoulder; M25.561 Pain in right knee

== ENCOUNTER 2019-12-04 09:13 | Day surgery (SDC) | payer MEDICARE, OTHER ==
[~2019-12-04] VITALS: Ht 177.8 cm; Wt 106.6 kg
[~2019-12-04 09:13] MED LIST changes: +ADVAIR; +HYDROCODON-ACE1 EA10 PO; +STOOL SOFTENER100 M1 PO
[2019-12-04 10:07] LABS: ANION GAP 9.7 mmol/L (8-16); CALCIUM 9.5 mg/dL (8.5-10.1); CARBON DIOXIDE 29.5 mmol/L (21.0-32.0); CREATININE - SERUM 1.2 mg/dL (0.6-1.3); POTASSIUM - SERUM 4.2 mmol/L (3.5-5.1)
[2019-12-04 10:19] LABS: MCHC 31.8 g/dL (31.0-37.0); MCV 94.2 fL (80.0-100.0); MEAN PLATELET VOLUME 9.3 fL (7.4-10.4); RBC 4.67 10x6/uL (4.20-6.10); RDW 14.9 % (11.5-14.5); WBC 6.9 10x3/uL (4.8-10.8)
[2019-12-04] MEDS ORDERED: PROSCAR5 MG PO (10:19)
[2019-12-04 10:20] VITALS: BP 138/83; Ht 177.8 cm; Wt 106.6 kg
[2019-12-04] MEDS ORDERED: HYDROCODON-ACE1 EA10 PO (12:44)
--- NOTE | 2019-12-09 14:10 | OP ---
PATIENT NAME: SHOBHA DICKSON MEDICAL RECORD: [id number] :51 LOCATION:[facility] ADMISSION DATE: SURGEON: SHOBHA BOBBY MD DATE OF OPERATION: 12/04/2019 PREOPERATIVE DIAGNOSIS: Lateral meniscus tear of the right knee. POSTOPERATIVE DIAGNOSIS: Lateral meniscus tear of the right knee. PROCEDURE: Arthroscopic partial lateral meniscectomy of the right knee. SURGEON: Shobha Bobby MD ANESTHESIA: General. INTRAOPERATIVE COMPLICATIONS: None. SUMMARY OF PATHOLOGIC FINDINGS: The patient has a complex tear of the posterior horn of the lateral meniscus consistent with preoperative diagnosis. OPERATIVE SUMMARY IN DETAIL: After obtaining the appropriate preoperative orthopedic surgery consent as well as anesthetic consultation, evaluation and clearance, the patient was brought to the operating room and placed on the operating table in a supine position. After adequate general laryngeal mask airway was administered, tourniquet was placed about the proximal aspect of the right lower extremity. Right lower extremity was then prepped and draped in routine sterile fashion. The leg was elevated and exsanguinated, tourniquet was inflated to 350 mmHg. Routine inferolateral portal was established followed by superomedial portal and inferomedial portal. Diagnostic arthroscopy showed the patient to have relatively pristine chondral surfaces. However, he had a tear of the posterior horn of the lateral meniscus on the medial side, juxtaposed to the root. Combination of a full radius resector as well as meniscotome were utilized to take down the meniscus back to stable meniscal elements. The area was completely free. There was a small tag emanating from the PCL that was also debrided. Having completed this, arthroscopy portals were closed in routine interrupted fashion. Knee was insufflated with 30 cc of 0.25% Marcaine with epinephrine, 80 mg of Depo-Medrol, arthroscopy portals having already been closed in routine sterile fashion with 4-0 Prolene. Sterile dressings were applied. Tourniquet was deflated. The patient was awakened and taken to recovery room in stable condition. All final needle and sponge counts were correct. TRANSINT:[id number] Voice Confirmation ID: [id number] DOCUMENT ID: [id number] SHOBHA BOBBY MD at 1410 CC: [id number] DICTATION DATE: 12/09/19 0940 PRICER: 12/09/19 1407 [facility]P [place] 12/04/19 [facility] [address] [place] [address]
== END 2019-12-04 14:20 | disposition home or self-care (01) ==
LOC: D.OPS 09:13 → D.PAN 13:30 → D.OPS 13:30
PROVIDERS: Anesthesiology; ATTEND Orthopaedic Surgery
DX: M25.561 Pain in right knee (principal); S83.231A Complex tear of medial meniscus, current injury, right knee, initial encounter; J45.909 Unspecified asthma, uncomplicated; E11.9 Type 2 diabetes mellitus without complications; K21.9 Gastro-esophageal reflux disease without esophagitis; Z79.84 Long term (current) use of oral hypoglycemic drugs; X58.XXXA Exposure to other specified factors, initial encounter